=== PATIENT | female | born 1945 | race Caucasian/White ===

== ENCOUNTER → 2017-11-18 | Outpatient (CLI) | payer OTHER ==
[~2017-11-18] MED LIST: ARC5 PO; BIOT1TAB5 PO; GLC500 PO; KLN5X PO; LISI2.5T5 PO; NRN/100 PO; PRAM0.1212 PO; SERT1TAB68 PO
[2017-11-18 18:50] LABS: INFLUENZA A PCR Neg for Influ A (NEG); INFLUENZA B PCR Neg for Influ B (NEG)
== END | disposition home or self-care (01) ==
LOC: C.LABMFLN 09:53
PROVIDERS: ATTEND Family Medicine
DX: B34.9 Viral infection, unspecified (principal)